=== PATIENT | female | born 1965 | race Caucasian/White ===

== ENCOUNTER 2020-05-12 14:17 | Inpatient (IN) ==
[2020-05-12] MEDS ORDERED: SODIUM CHLORIDE 0.9% 1,000 ML IV STA (15:11)
[2020-05-12] MEDS ORDERED: ONDANSETRON 4 MG/2 ML VIAL IV STA (15:11)
[2020-05-12 15:33] LABS: Basophils # 0.1 10*3/uL (0.0-0.2); Basophils % 0.8 % (0.0-0.8); Hematocrit 41.9 VOL% (35.7-47.0); Hemoglobin 14.2 GM/DL (12.0-16.0); Immature Granulocytes % 0.6 %; Immature Granulocytes Absolute 0.05 #; Lymphocytes # 0.8 10*3/uL (1.4-4.0); Mean Corpuscular HGB Conc 33.9 GM/DL (32-36); Mean Corpuscular Volume 92.1 FL (87-102); Mean Platelet Volume 9.1 FL (9.6-12.0); Neutrophils % 86.6 % (38.7-73.9); Platelet Count 416 T/CUMM (130-400); Red Blood Count 4.55 MC/CUMM (3.8-5.5); White Blood Count 8.9 T/CUMM (4-12)
[2020-05-12 15:48] LABS: INR 1.1; PT Patient Result 11.3 SECS (9.8-11.9); Partial Thromboplastin Time 29.8 SECS (23.9-33.8)
[2020-05-12 15:55] LABS: Alanine Aminotransferase 20 U/L (13-56); Albumin 3.8 G/DL (3.4-5.0); Alkaline Phosphatase 318 U/L (45-117); Amylase 33 U/L (25-115); Aspartate Amino Transferase 31 U/L (0-37); Blood Urea Nitrogen 7 MG/DL (7-18); Calcium 9.5 MG/DL (8.5-10.1); Estimated Glom Filtration Rate 93 ML/MIN; Glucose 132 MG/DL (74-106); Osmolality,Calculated 272.8 MOS/KG (273-304); Total Protein 8.1 G/DL (6.4-8.3); Troponin I < 0.015 NG/ML (0.00-0.045)
[2020-05-12] MEDS ORDERED: hydrALAZINE 20 MG/1 ML VIAL ONE (16:06)
[2020-05-12] MEDS ORDERED: hydrALAZINE 20 MG/1 ML VIAL IV STA (16:08)
[2020-05-12 16:45] LABS: Apearance,Urine CLEAR (Clear); Bilirubin,Urine Negative (Negative); Blood, Urine Negative (Negative); Glucose,Urine (UA) Negative (Negative); Ketones,Urine 20 mg/dL (Negative); Nitrite,Urine Negative (Negative); Protein,Urine Negative; RBC,Urine 1 /HPF (0-4); Squamous Epithelial Cell,Urine Occasional /HPF (0-10); Urine Color Straw (Yellow); Urine Specific Gravity 1.006 (1.001-1.035); Urine Urobilinogen < 2.0 EU/DL (0.2-1.0); WBC,Urine <1 /HPF (0-6)
[2020-05-12 16:48] LABS: Barbiturates Screen,Urine Negative (Negative); Benzodiazepines Screen,Urine Negative (Negative); Cannabinoid Screen,Urine Negative (Negative); Opiate Screen,Urine Negative (Negative); Phencyclidine Screen,Urine Negative (Negative)
[2020-05-12] MEDS ORDERED: LORazepam 2 MG/1 ML VIAL ONE (17:18)
[2020-05-12] MEDS ORDERED: LORazepam 2 MG/1 ML VIAL IV STA (17:21)
[2020-05-12] MEDS ORDERED: cefTRIAXone 1,000 MG in SODIUM CHLORIDE 0.9% 100 ML IV STA (18:07)
[2020-05-12] MEDS ORDERED: ACETAMINOPHEN 325 MG TABLET PO PRN (19:47)
[2020-05-12] MEDS ORDERED: GLUCAGON 1 MG VIAL IM PRN (19:47)
[2020-05-12] MEDS ORDERED: DEXTROSE 50% 25 GM/50 ML VIAL IV PRN (19:47)
[2020-05-12] MEDS ORDERED: ONDANSETRON 4 MG/2 ML VIAL IV PRN (19:47)
[2020-05-12] MEDS ORDERED: cloNIDine 0.2 MG/24 HR PATCH TRANSDERM SCH (21:00)
[2020-05-12] MEDS ORDERED: AZITHROMYCIN INJ 500 MG in SODIUM CHLORIDE 0.9% 250 ML IV SCH (21:00)
[2020-05-12] MEDS: DEXTROSE 5% NACL 0.45% 1,000 ML IV SCH (21:51)
[2020-05-12] MEDS: ENOXAPARIN 40 MG/0.4 ML SYRINGE SUBCUT SCH (21:52)
[2020-05-13] MEDS: ALBUTEROL/IPRATROPIUM 3 ML NEB RESP TX SCH ×5 (01:55→19:10)
[2020-05-13 05:41] LABS: Basophils # 0.1 10*3/uL (0.0-0.2); Basophils % 0.6 % (0.0-0.8); Eosinophils % 0.1 % (0.00-10.9); Hematocrit 37.4 VOL% (35.7-47.0); Hemoglobin 12.6 GM/DL (12.0-16.0); Immature Granulocytes % 0.3 %; Immature Granulocytes Absolute 0.03 #; Lymphocytes # 1.6 10*3/uL (1.4-4.0); Lymphocytes % 15.6 % (21.3-54.2); Mean Corpuscular HGB Conc 33.7 GM/DL (32-36); Mean Corpuscular Volume 91.4 FL (87-102); Monocytes % 6.4 % (1.7-12.7); Platelet Count 378 T/CUMM (130-400); Red Blood Count 4.09 MC/CUMM (3.8-5.5); Red Cell Distribution Width 14.2 % (9.3-17.3); White Blood Count 10.5 T/CUMM (4-12)
[2020-05-13 06:04] LABS: Calcium 8.7 MG/DL (8.5-10.1); Osmolality,Calculated 270.8 MOS/KG (273-304)
[2020-05-13] MEDS ORDERED: POTASSIUM CHLORIDE RIDER 10 MEQ in PREMIX 1 EACH IV PRN (07:15)
[2020-05-13] MEDS: POTASSIUM CHLORIDE 20 MEQ TABLET PO PRN ×4 (08:22→18:31)
[2020-05-13] MEDS: AZITHROMYCIN 250 MG TABLET PO SCH (08:22)
[2020-05-13] MEDS: cefTRIAXone 2,000 MG in SYRINGE 1 EACH IV SCH (08:23)
[2020-05-13] MEDS: FLUoxetine 20 MG CAPSULE PO SCH (08:23)
[2020-05-13] MEDS: DEXTROSE 5% NACL 0.45% 1,000 ML IV SCH (14:46)
[2020-05-13] MEDS: amLODIPine 5 MG TABLET PO SCH (15:46)
[2020-05-13] MEDS: ENOXAPARIN 40 MG/0.4 ML SYRINGE SUBCUT SCH (20:08)
[2020-05-14] MEDS: ALBUTEROL/IPRATROPIUM 3 ML NEB RESP TX SCH ×2 (01:05→07:20)
[2020-05-14 04:11] LABS: Basophils # 0.1 10*3/uL (0.0-0.2); Basophils % 1.3 % (0.0-0.8); Eosinophils # 0.1 10*3/uL (0.0-0.87); Eosinophils % 1.8 % (0.00-10.9); Hematocrit 35.8 VOL% (35.7-47.0); Hemoglobin 11.8 GM/DL (12.0-16.0); Immature Granulocytes % 0.3 %; Immature Granulocytes Absolute 0.02 #; Lymphocytes # 1.9 10*3/uL (1.4-4.0); Mean Platelet Volume 9.1 FL (9.6-12.0); Monocytes % 8.1 % (1.7-12.7); Neutrophils % 58.5 % (38.7-73.9); Platelet Count 307 T/CUMM (130-400); Red Blood Count 3.81 MC/CUMM (3.8-5.5); Red Cell Distribution Width 14.4 % (9.3-17.3); White Blood Count 6.3 T/CUMM (4-12)
[2020-05-14 04:29] LABS: Calcium 8.7 MG/DL (8.5-10.1)
[2020-05-14] MEDS: amLODIPine 5 MG TABLET PO SCH (09:16)
[2020-05-14] MEDS: FLUoxetine 20 MG CAPSULE PO SCH (09:16)
[2020-05-14] MEDS: AZITHROMYCIN 250 MG TABLET PO SCH (09:16)
[2020-05-14] MEDS: cefTRIAXone 2,000 MG in SYRINGE 1 EACH IV SCH (10:09)
[2020-05-14] MEDS: DEXTROSE 5% NACL 0.45% 1,000 ML IV SCH (10:11)
[2020-05-14 11:15] VITALS: BP 112/62
== END 2020-05-14 12:19 | disposition home or self-care (01) | DRG 922 ==
LOC: EDUNIT# → EDBD → N.ED 14:17 → SUATTDRO 18:39 → N.EDINP 18:39 → N.2E 20:41
PROVIDERS: ADMIT Internal Medicine; ATTEND Internal Medicine